=== PATIENT | male | born 1960 | race Caucasian/White ===

== ENCOUNTER 2017-12-21 13:39 | Emergency (ER) | payer SELFPAY ==
--- NOTE | 2017-12-21 15:17 | ER ---
Nurse's Notes [facility] Name: Kenrick Cedeno III Age: 57 yrs Sex: Male : 1960 Arrival Date: 12/21/2017 Time: 13:41 Bed 24 Private MD: None, None Diagnosis: Effusion of joint Presentation: 12/21 13:48 Presenting complaint: Patient states: Swelling and pain to right forearm and elbow aj since last night. Patient reports catching himself with right arm from a fall 3 days ago. Transition of care: patient was not received from another setting of care. Onset of symptoms was December 20, 2017. Risk Assessment: Do you want to hurt yourself or someone else? Patient reports no desire to harm self or others. Care prior to arrival: None. 13:48 Method Of Arrival: Ambulatory aj 13:48 Acuity: [place] 4 aj 13:56 Initial Sepsis Screen: Does the patient meet any 2 criteria? No. Patient's initial tl3 sepsis screen is negative. Does the patient have a suspected source of infection? No. Patient's initial sepsis screen is negative. Triage Assessment: 13:50 General: Appears in no apparent distress. comfortable, Behavior is calm, cooperative, aj appropriate for age. Pain: Complains of pain in right elbow and palmar aspect of right forearm Pain currently is 7 out of 10 on a pain scale. Neuro: Level of Consciousness is awake, alert, obeys commands, Oriented to person, place, time, situation, Appropriate for age. Respiratory: Airway is patent Respiratory effort is even, unlabored, Respiratory pattern is regular, symmetrical. Derm: Skin is intact, is healthy with good turgor, Skin is pink, warm \T\ dry. normal. Musculoskeletal: Reports pain in right elbow and palmar aspect of right forearm. Historical: - Allergies: 13:50 No Known Allergies; aj - Home Meds: 13:50 Lisinopril Oral [Active]; aj - PMHx: 13:50 Hypertension; aj - PSHx: 13:50 None; aj - Immunization history:: Adult Immunizations up to date. - Social history:: Smoking status: Patient/guardian denies using tobacco. - Ebola Screening: : Patient negative for fever greater than or equal to 101.5 degrees Fahrenheit, and additional compatible Ebola Virus Disease symptoms Patient denies exposure to infectious person Patient denies travel to an Ebola-affected area in the 21 days before illness onset No symptoms or risks identified at this time. Screenin:57 Abuse screen: Denies threats or abuse. Nutritional screening: No deficits noted. tl3 Tuberculosis screening: No symptoms or risk factors identified. Fall Risk None identified. Assessment: 13:57 General: Appears uncomfortable, slender, well groomed, well developed, well nourished, tl3 Behavior is calm, cooperative, appropriate for age. Pain: Complains of pain in right arm and palmar aspect of right forearm and right elbow Pain currently is 7 out of 10 on a pain scale. Neuro: Level of Consciousness is awake, alert, obeys commands, Oriented to person, place, time, situation, Appropriate for age. Cardiovascular: Heart tones S1 S2 present Capillary refill < 3 seconds in bilateral fingers Patient's skin is warm and dry. Respiratory: Airway is patent Respiratory effort is even, unlabored, Respiratory pattern is regular, symmetrical, Breath sounds are clear bilaterally. GI: No deficits noted. No signs and/or symptoms were reported involving the gastrointestinal system. : No deficits noted. No signs and/or symptoms were reported regarding the genitourinary system. EENT: No deficits noted. No signs and/or symptoms were reported regarding the EENT system. Derm: No deficits noted. No signs and/or symptoms reported regarding the dermatologic system. Musculoskeletal: Range of motion: limited in right arm and palmar aspect of right forearm and right elbow Tenderness present in palmar aspect of right forearm and right elbow Reports pain in right arm and palmar aspect of right forearm and right elbow since Tuesday. moderate amount of swelling, unable to extend thumb and index fully. 15:09 Reassessment: Patient appears in no apparent distress at this time. No changes from tl3 previously documented assessment. Patient and/or family updated on plan of care and expected duration. Pain level reassessed. Patient is alert, oriented x 3, equal unlabored respirations, skin warm/dry/pink. awaiting radiology report. Vital Signs: 13:50 BP 149 / 89; Pulse 79; Resp 17; Temp 97.7; Pulse Ox 99% on R/A; Weight 74.84 kg; Height aj 5 ft. 4 in. (162.56 cm); Pain 7/10; 14:38 BP 128 / 94; Pulse 71; Resp 16; Pulse Ox 99% on R/A; tl3 15:32 BP 146 / 93; Pulse 67; Resp 18; Pulse Ox 100% on R/A; tl3 13:50 Body Mass Index 28.32 (74.84 kg, 162.56 cm) ED Course: 13:41 Patient arrived in ED. mr 13:42 None, None is Private Physician. mr 13:50 Triage completed. aj 13:50 Arm band placed on left wrist. Patient placed in an exam room. aj 13:53 Jess Diaz, RN is Primary Nurse. tl3 13:57 Frederick Bautista PA is PHCP. jr8 13:57 Moi Becker MD is Attending Physician. jr8 13:57 Patient has correct armband on for positive identification. Bed in low position. Call tl3 light in reach. Side rails up X 1. Adult w/ patient. 13:57 No provider procedures requiring assistance completed. tl3 14:35 X-ray(s) taken. tl3 14:37 X-ray completed. Portable x-ray completed in exam room. Patient tolerated procedure jb2 well. 14:38 XRAY Elbow RIGHT 3 view In Process Unspecified. EDMS 15:16 Mahesh Valerio MD is Referral Physician. jr8 Administered Medications: No medications were administered Outcome: 15:17 Discharge ordered by . jr8 15:34 Patient left the ED. tl3 Signatures: Dispatcher [employer] EDMS Crys Martin RN RN aj Rivera, Maria Shantanu Rivas jb2 Frederick Bautista PA PA jr8 Jess Diaz, [place] RN tl3 Corrections: (The following items were deleted from the chart) 15:34 15:[address] tl3 tl3
--- NOTE | 2017-12-21 15:17 | EDPHYS ---
Physician Documentation [facility] Name: Kenrick Cedeno III Age: 57 yrs Sex: Male : 1960 Arrival Date: 12/21/2017 Time: 13:41 Bed 24 Private MD: None, None ED Physician Moi Becker HPI: 12/21 14:45 This 57 yrs old Male presents to ER via Ambulatory with complaints of Arm jr8 Injury. 14:45 The complaints affect the right elbow. Onset: The symptoms/episode began/occurred jr8 acutely, 3 day(s) ago. Modifying factors: The symptoms are alleviated by nothing. the symptoms are aggravated by movement, bending arm. Associated signs and symptoms: The patient has no apparent associated signs or symptoms. Severity of symptoms: At their worst the symptoms were mild, in the emergency department the symptoms are unchanged. The patient has not experienced similar symptoms in the past. The patient has not recently seen a physician. Patient stated that he fell three days ago but caught himself with his hands. Stated that last night noticed it was hard to move right elbow. Now has swelling to right elbow . Historical: - Allergies: 13:50 No Known Allergies; aj - Home Meds: 13:50 Lisinopril Oral [Active]; aj - PMHx: 13:50 Hypertension; aj - PSHx: 13:50 None; aj - Immunization history:: Adult Immunizations up to date. - Social history:: Smoking status: Patient/guardian denies using tobacco. - Ebola Screening: : Patient negative for fever greater than or equal to 101.5 degrees Fahrenheit, and additional compatible Ebola Virus Disease symptoms Patient denies exposure to infectious person Patient denies travel to an Ebola-affected area in the 21 days before illness onset No symptoms or risks identified at this time. ROS: 14:45 Eyes: Negative for injury, pain, redness, and discharge, ENT: Negative for injury, jr8 pain, and discharge, Neck: Negative for injury, pain, and swelling, Cardiovascular: Negative for chest pain, palpitations, and edema, Respiratory: Negative for shortness of breath, cough, wheezing, and pleuritic chest pain, Abdomen/GI: Negative for abdominal pain, nausea, vomiting, diarrhea, and constipation, Back: Negative for injury and pain, Skin: Negative for injury, rash, and discoloration, Neuro: Negative for headache, weakness, numbness, tingling, and seizure. 14:45 MS/extremity: Positive for decreased range of motion, pain, swelling, of the right elbow. Exam: 14:45 Cardiovascular: Regular rate and rhythm with a normal S1 and S2. No gallops, murmurs, jr8 or rubs. Normal PMI, no JVD. No pulse deficits. Respiratory: Lungs have equal breath sounds bilaterally, clear to auscultation and percussion. No rales, rhonchi or wheezes noted. No increased work of breathing, no retractions or nasal flaring. Skin: Warm, dry with normal turgor. Normal color with no rashes, no lesions, and no evidence of cellulitis. Neuro: Awake and alert, GCS 15, oriented to person, place, time, and situation. Cranial nerves II-XII grossly intact. Motor strength 5/5 in all extremities. Sensory grossly intact. Cerebellar exam normal. Normal gait. 14:45 Musculoskeletal/extremity: Extremities: grossly normal except: noted in the right elbow: pain, swelling, ROM: intact in all extremities, Circulation is intact in all extremities. Sensation intact. moderate joint effusion noted to right elbow. No erythema noted. No surrounding cellulitis . Vital Signs: 13:50 BP 149 / 89; Pulse 79; Resp 17; Temp 97.7; Pulse Ox 99% on R/A; Weight 74.84 kg; Height aj 5 ft. 4 in. (162.56 cm); Pain 7/10; 14:38 BP 128 / 94; Pulse 71; Resp 16; Pulse Ox 99% on R/A; tl3 15:32 BP 146 / 93; Pulse 67; Resp 18; Pulse Ox 100% on R/A; tl3 13:50 Body Mass Index 28.32 (74.84 kg, 162.56 cm) Procedures: 15:16 Splinting: Splint applied to right elbow using ac wrap, applied by nurse. Examined by marilyn ok, post splint application: neurovascular intact, 2+ distal pulses palpable, brisk capillary refill noted, Patient tolerated well. MDM: 13:57 Patient medically screened. jr8 14:45 Data reviewed: vital signs, nurses notes, radiologic studies, plain films. Data jr8 interpreted: Pulse oximetry: on room air is 99 %. Interpretation: normal. Counseling: I had a detailed discussion with the patient and/or guardian regarding: the historical points, exam findings, and any diagnostic results supporting the discharge/admit diagnosis, radiology results, the need for outpatient follow up, a orthopedic surgeon, to return to the emergency department if symptoms worsen or persist or if there are any questions or concerns that arise at home. ED course: Discussed with patient that there is no occult fracture identified. Arthritic changes to elbow noted. Joint effusion present. Probably from fall injury. No signs/symptoms for gout or septic joint. Will put in ac wrap and give anti-inflammatory. To follow up with orthopedic . 12/21 14:19 Order name: XRAY Elbow RIGHT 3 view jr8 Administered Medications: No medications were administered Disposition: 16:10 Co-signature as Attending Physician, Moi Becker MD I agree with the assessment and kdr plan of care. Disposition: 12/21/17 15:17 Discharged to Home. Impression: Effusion of joint. - Condition is Stable. - Discharge Instructions: Elbow Contusion. - Prescriptions for Ibuprofen 800 mg Oral Tablet - take 1 tablet by ORAL route every 12 hours As needed take with food; 20 tablet. - Medication Reconciliation Form, Thank You Letter, Antibiotic Education, Prescription Opioid Use form. - Follow up: Mahesh Valerio MD; When: 2 - 3 days; Reason: Recheck today's complaints, Continuance of care, Re-evaluation by your physician. - Problem is new. - Symptoms are unchanged. - Notes: Ice elbow Ac Wrap as tolerated Minimize lifting objects with affected arm Signatures: Dispatcher [employer] EDDE Crys Martin, RN Moi Sanz MD MD [facility] Frederick Bautista PA PA jr8 Jess Diaz, [place] RN tl3 Corrections: (The following items were deleted from the chart) 15:34 15:17 12/21/2017 15:17 Discharged to Home. Impression: Effusion of joint. Condition is tl3 Stable. Forms are Medication Reconciliation Form, Thank You Letter, Antibiotic Education, Prescription Opioid Use. Follow up: Dr. Mahesh Valerio; When: 2 - 3 days; Reason: Recheck today's complaints, Continuance of care, Re-evaluation by your physician. Problem is new. Symptoms are unchanged. jr8
--- NOTE | 2017-12-21 15:42 | RAD REPORT ---
EXAM DESCRIPTION: RAD - Elbow Right 3 View - 12/21/2017 2:41 pm CLINICAL HISTORY: Arm pain and swelling, history of fall 1 day earlier COMPARISON: None. FINDINGS: No acute fracture changes seen. No elevated posterior fat pad to indicate an acute joint E fusion. No pathologic bone process. Patient has severe, very advanced for age degenerative change at the elbo w joint. There is joint space narrowing between the humerus and radial head. Marginal spurring change s are present. There are pericapsular calcifications seen along the lateral joint line. Patient has a very large 3 x 1.5 centimeter dystrophic calcification in the soft tissues along the medial joint li ne. There is soft tissue thickening in this region as well as posteriorly. Degenerative changes are p resent to a lesser degree along the articular surfaces of the ulna and humerus along that joint line. No air or foreign body in the soft tissues. IMPRESSION: No acute fracture or dislocation. 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 There is a large dystrophic fiorella cification along the medial joint line.
== END 2017-12-21 15:34 | disposition home or self-care (01) ==
LOC: ER 13:39
PROC: 2W38X1Z Immobilization of Right Upper Extremity using Splint (ICD-10-PCS; principal; 2017-12-21)
DX: M25.421 Effusion, right elbow (principal); I10 Essential (primary) hypertension
CPT/HCPCS: 99283